=== PATIENT | female | born 1955 | race Caucasian/White ===

== ENCOUNTER 2016-11-13 08:50 | Inpatient (IN) | payer OTHER ==
[2016-11-13] MEDS ORDERED: SUCCINYLCHOLINE CHLORIDE INJ 200 MG/10 ML VIAL ONE (09:49)
[2016-11-13] MEDS ORDERED: LIDOCAINE 2% INJ-PF (20 MG/ML) 10 ML AMPUL ONE (09:49)
[2016-11-13] MEDS ORDERED: NEOSTIGMINE METHYLSULFATE 10 MG/10 ML VIAL ONE (09:49)
[2016-11-13] MEDS ORDERED: METOCLOPRAMIDE HCL INJ/PF 10 MG/2 ML SDV ONE (09:49)
[2016-11-13] MEDS ORDERED: GLYCOPYRROLATE INJ 0.4 MG/2 ML VIAL ONE (09:49)
[2016-11-13] MEDS ORDERED: ONDANSETRON HCL INJ/PF 4 MG/2 ML SDV ONE (09:49)
[2016-11-13] MEDS ORDERED: ROCURONIUM BROMIDE INJ 50 MG/5 ML VIAL IV ONE (09:49)
[2016-11-13] MEDS ORDERED: DEXAMETHASONE SOD PHOSPHATE INJ 4 MG/1 ML VIAL ONE (09:49)
--- NOTE | 2016-11-13 10:05 | ER Document Report ---
ED GI/ <LUCA AMES - Last Filed: 11/13/16 15:23> - General Time seen by provider: 10:25 Mode of Arrival: Ambulatory Information source: Patient TRAVEL OUTSIDE OF THE [place] IN LAST 30 DAYS: No - HPI Patient complains to provider of: Abdominal pain. No: Diarrhea, Vomiting Onset: Other - see HPI note Associated symptoms: Loss of appetite, Nausea. denies: Diarrhea, Fever, Vomiting <JANE VANN - Last Filed: 11/13/16 15:42> - General Chief Complaint: Abdominal Pain Stated Complaint: ABDOMINAL PAIN Notes: Patient is a 60 year old female presenting to the emergency department for abdominal pain. Patient states she has had this pain 3 or 4 times in the past but it goes away. Patient has never been treated while having this pain; she was told to be evaluated if the pain returns. Patient states that her pain started yesterday and was worsened after eating pizza for dinner. Patient states that her pain was gradual but quick. Patient does not have an appetite this morning. Patient states that she has some pressure under her ribs and in her right upper quadrant. Patient states that her pain radiates into her shoulder and back. Patient states that her last bowel movement was normal and this morning. Patient also is nauseous but denies any vomiting or diarrhea. Patient states she has a history of an umbilical hernia, Cesarian section, kidney stones, a colonoscopy with a polyup removed. Patient has no known allergies. Patient is originally from [place]. (JANE VANN) - Related Data Allergies/Adverse Reactions: No Known Allergies Allergy (Unverified 11/13/16 08:58) Home Medications: Current Home Medications No Home Medications 11/13/16 [History] Past Medical History - General Information source: Patient - Social History Smoking Status: Never Smoker Cigarette use (# per day): No Chew tobacco use (# tins/day): No Frequency of alcohol use: None Drug Abuse: None Family History: Other - mother-bladder cancer; dad-lung cancer Patient has suicidal ideation: No Patient has homicidal ideation: No <JANE VANN - Last Filed: 11/13/16 15:42> Review of Systems - Review of Systems Constitutional: No symptoms reported EENT: No symptoms reported Cardiovascular: No symptoms reported Respiratory: No symptoms reported Gastrointestinal: See HPI, Abdominal pain, Nausea, Poor appetite. denies: Diarrhea, Vomiting Genitourinary: No symptoms reported Female Genitourinary: No symptoms reported Musculoskeletal: No symptoms reported Skin: No symptoms reported Hematologic/Lymphatic: No symptoms reported Neurological/Psychological: No symptoms reported -: Yes All other systems reviewed and negative <JANE VANN - Last Filed: 11/13/16 15:42> Physical Exam - Vital signs Interpretation: Normal - General General appearance: Appears well, Alert - HEENT Head: Normocephalic, Atraumatic Eyes: Normal Pupils: PERRL Mucous membranes: Moist - Respiratory Respiratory status: No respiratory distress Chest status: Nontender Breath sounds: Normal Chest palpation: Normal - Cardiovascular Rhythm: Regular Heart sounds: Normal auscultation Murmur: No - Abdominal Inspection: Normal Distension: No distension Bowel sounds: Normal Tenderness: Tender - right upper quadrant pain with palpation, mild epigastric pain, inspiratory pause with palpation to the right upper quadrant; no guarding , no rebound, no rigidity Organomegaly: No organomegaly - Back Back: Normal, Nontender - Extremities General upper extremity: Normal inspection, Normal ROM, Normal strength General lower extremity: Normal inspection, Normal ROM, Normal strength - Neurological Neuro grossly intact: Yes Cognition: Normal Orientation: AAOx4 Radha Coma Scale Eye Opening: Spontaneous [place] Coma Scale Verbal: Oriented [place] Coma Scale Motor: Obeys Commands [place] Coma Scale Total: 15 Speech: Normal - Psychological Associated symptoms: Normal affect, Normal mood - Skin Skin Temperature: Warm Skin Moisture: Dry <JANE VANN - Last Filed: 11/13/16 15:42> - Vital signs Vitals: Temp Pulse Resp BP Pulse Ox 98.5 F 63 16 160/93 H 99 11/13/16 08:57 11/13/16 08:57 11/13/16 08:57 11/13/16 08:57 11/13/16 08:57 Course - Laboratory Result Diagrams: 11/13/16 12:25 11/13/16 12:25 <LUCA AMES - Last Filed: 11/13/16 15:23> - Laboratory Result Diagrams: 11/13/16 12:25 11/13/16 12:25 - Consults Dr. Jean Time consulted: 13:30 <AYSHALEOJANE - Last Filed: 11/13/16 15:42> - Re-evaluation Re-evalutation: 11/13/16 13:23 I personally performed the services described in the documentation, reviewed and edited the documentation which was dictated to my scribe in my presence, and it accurately records my words and actions. dr jean here to evaluate and admit Dr presents to the emergency department with epigastric right upper quadrant dull pain that started last evening and has been constant. She said this is happened to her 4 or 5 times over the last year but by morning time is completely resolved when she goes to Dr. they tell her they want to see it when it active. Patient had any workup or evaluation for this. She recalls eating pizza last night kept her awake only long and the pain has continued. Nausea but no vomiting no fever or chills or diarrhea. She has no major medical problems and is on no medications and is visiting from [place]. On my examination she had right upper quadrant abdominal pain with inspiratory pause. Gallbladder ultrasound showing adenomyomatosis and pericholecystic fluid with elevated white blood cell count of 16,000. Patient is given Invanz pain control serial abdominal examinations no guarding rebound or rigidity. I have paged Dr. jean who is compressor station engineer chief for surgery and awaiting a callback. 11/13/16 15:22 Dr jean here to evaluate and admit patient (LUCA AMES) - Vital Signs Vital signs: Temp Pulse Resp BP Pulse Ox 98.8 F 65 16 139/78 H 98 11/13/16 14:56 11/13/16 14:56 11/13/16 14:56 11/13/16 14:56 11/13/16 14:56 - Laboratory Laboratory results interpreted by me: 11/13/16 11/13/16 11/13/16 10:05 12:25 12:25 WBC 16.0 H Seg Neutrophils % 80.7 H Lymphocytes % 12.8 L Absolute Neutrophils 12.9 H Sodium 146.5 H Urine Ketones 20 H Urine Blood MODERATE H - Consults Dr. Jean Reason for consultation: 11/13/16 13:[address] Jean about patient for possible cholecystectomy. He will see the patient. (JANE VANN) Critical Care Note - Critical Care Note Total time excluding time spent on procedures (mins): 45 <LUCA AMES - Last Filed: 11/13/16 15:23> Discharge - Discharge Admitting Provider: Surgicalist Unit Admitted: Medical Floor <LUCA AMES - Last Filed: 11/13/16 15:23> Scribe Documentation - Scribe Written by Scribe:: Jane Vann 11/13/16 14:28 acting as scribe for :: Jered <JANE VANN - Last Filed: 11/13/16 15:42>
[2016-11-13 10:22] LABS: APPEARANCE,URINE CLEAR; BILIRUBIN,URINE NEGATIVE (NEGATIVE); GLUCOSE, URINE NEGATIVE (NEGATIVE); KETONES,URINE 20 mg/dL (NEGATIVE); LEUKOCYTE ESTERASE,URINE NEGATIVE (NEGATIVE); NITRITE,URINE NEGATIVE (NEGATIVE); PROTEIN,URINE NEGATIVE (NEGATIVE); URINE SPECIFIC GRAVITY 1.018; UROBILINOGEN,URINE NEGATIVE mg/dL (<2.0)
[2016-11-13] MEDS ORDERED: FENTANYL CITRATE INJ/PF 100 MCG/2 ML AMPUL IV ONE (11:05)
[2016-11-13] MEDS ORDERED: ONDANSETRON HCL INJ/PF 4 MG/2 ML SDV IV ONE (11:06)
[2016-11-13 12:41] LABS: ABSOLUTE BASOPHILS # (AUTO) 0.1 10^3/uL (0.0-0.2); ABSOLUTE NEUT (AUTO) 12.9 10^3/uL (1.7-8.2); BASOPHILS % (AUTO) 0.3 % (0-2); EOSINOPHILS % (AUTO) 0.1 % (0-6); HEMATOCRIT 43.6 % (36.0-47.0); HEMOGLOBIN 14.4 g/dL (12.0-15.5); HGB HCT DIFFERENCE -0.4; LYMPHOCYTES % (AUTO) 12.8 % (13-45); MEAN CORPUSCULAR HEMOGLOBIN 28.9 pg (27.0-33.4); MEAN CORPUSCULAR HGB CONC 32.9 g/dL (32.0-36.0); MEAN CORPUSCULAR VOLUME 88 fl (80-97); MONOCYTES % (AUTO) 6.1 % (3-13); RED BLOOD COUNT 4.96 10^6/uL (3.72-5.28); RED CELL DISTRIBUTION WIDTH 13.2 % (11.5-14.0); SEGMENTED NEUTROPHILS % (AUTO) 80.7 % (42-78)
[2016-11-13 13:02] LABS: ALANINE AMINOTRANSFERASE 23 U/L (9-52); ALBUMIN 4.3 g/dL (3.5-5.0); ALKALINE PHOSPHATASE 84 U/L (38-126); ANION GAP 16 (5-19); ASPARTATE AMINO TRANSFERASE 19 U/L (14-36); BILIRUBIN,DIRECT 0.3 mg/dL (0.0-0.4); BILIRUBIN,TOTAL 0.7 mg/dL (0.2-1.3); BLOOD UREA NITROGEN 8 mg/dL (7-20); CALCIUM 9.7 mg/dL (8.4-10.2); CARBON DIOXIDE 27 mmol/L (22-30); CHLORIDE 104 mmol/L (98-107); CREATININE RESULT 0.59 mg/dL (0.52-1.25); GLUCOSE 96 mg/dL (75-110); LIPASE 64.1 U/L (23-300); POTASSIUM 4.4 mmol/L (3.6-5.0); SODIUM 146.5 mmol/L (137-145); TOTAL PROTEIN 7.4 g/dL (6.3-8.2)
[2016-11-13] MEDS ORDERED: ERTAPENEM SODIUM INJ 1 GM VIAL IV ONE (13:25)
[2016-11-13] MEDS ORDERED: LIDOCAINE 1% INJ-PF (10 MG/ML) 30 ML SDV ONE (15:40)
[2016-11-13] MEDS ORDERED: BUPIVACAINE HCL 0.25% /EPINEPHRINE INJ/PF 30 ML SDV ONE (15:41)
[2016-11-13] MEDS ORDERED: MIDAZOLAM 2 MG/2 ML INJ ONE (16:15)
[2016-11-13] MEDS ORDERED: FENTANYL CITRATE INJ/PF 250 MCG/5 ML AMPULE ONE (16:15)
[2016-11-13] MEDS ORDERED: ACETAMINOPHEN 100 ML IV ONE (16:16)
[2016-11-13] MEDS ORDERED: DEXMEDETOMIDINE INJ 80 MCG/20 ML VIAL IV ONE (16:16)
[2016-11-13] MEDS ORDERED: PROPOFOL INJ 200 MG/20 ML VIAL IV ONE (16:16)
[2016-11-13] MEDS ORDERED: EPHEDRINE SULFATE INJ 50 MG/1 ML AMPULE ONE (16:16)
[2016-11-13] MEDS ORDERED: PROMETHAZINE HCL INJ 25 MG/1 ML VIAL IV PRN ×2 (17:35)
[2016-11-13] MEDS ORDERED: MORPHINE SULFATE 10 MG/ML INJ IV PRN (17:35)
[2016-11-13] MEDS ORDERED: MEPERIDINE HCL/PF INJ 25 MG/1 ML DISP.SYRIN IV PRN (17:35)
[2016-11-13] MEDS ORDERED: DIPHENHYDRAMINE HCL 50 MG/ML VIAL IV PRN (17:35)
[2016-11-13] MEDS ORDERED: FENTANYL CITRATE INJ/PF 100 MCG/2 ML AMPUL IV PRN ×3 (17:35)
[2016-11-13] MEDS ORDERED: ONDANSETRON HCL INJ/PF 4 MG/2 ML SDV IV PRN ×2 (17:35→19:37)
--- NOTE | 2016-11-13 17:38 | HISTORY AND PHYSICAL E ---
History and Physical NAME: TOMAS ODELL : 1955 AGE: 60Y ADMITTED: 11/13/2016 ROOM: ED42 CHIEF COMPLAINT: Right upper quadrant. HISTORY OF PRESENT ILLNESS: This is a healthy 60-year-old female who comes to the hospital with a 24-hour history of right upper quadrant pain, intense nausea, chills. The pain is localized in the right upper quadrant. Ultrasound of the gallbladder was done, revealing gallstones with thickening of the gallbladder wall and fluid around the gallbladder. The patient reports to have discomfort in the past but it has become more intense during the past 24 hours. PAST MEDICAL HISTORY: Umbilical hernia repair. ALLERGIES: None. MEDICATIONS: None. SOCIAL HISTORY: The patient admits to occasional use of alcohol. Denies abuse of tobacco and drugs. FAMILY HISTORY: Family history has been investigated and is negative. REVIEW OF SYSTEMS: A 12-point review of systems was then performed and s negative. LABORATORY DATA: White blood cell count 16, H and H 14 and 43, platelet count 337. Electrolytes within normal limits except for sodium of 146. Liver profile is normal. Urinalysis within normal limits except for a small amount of blood. Ultrasound of the gallbladder shows a thickened gallbladder wall, minimal pericholecystic fluid and floating stones together with deposits of cholesterol. PHYSICAL EXAMINATION: GENERAL: The patient is alert and oriented x3 in no acute distress. VITAL SIGNS: Stable. Patient afebrile. HEENT: VII-XII cranial nerves are normal. NECK: Supple without masses. CHEST: Symmetrical bilaterally. LUNGS: Clear to auscultation bilaterally. HEART: Regular rhythm and rate. ABDOMEN: Flat, soft, nondistended. Tender in the right upper quadrant. EXTREMITIES: Upper extremities equal and symmetric bilaterally without deficits. NEUROLOGIC SYSTEM: Equal and symmetric bilaterally without deficits. SKIN: Warm, dry, intact without lesions. ASSESSMENT AND PLAN: 1. Right upper quadrant pain on physical examination. 2. Ultrasound significant for thickening of gallbladder wall with pericholecystic fluid and gallstones. 3. Liver profile within normal limits. 4. Leukocytosis. PLAN: 1. Laparoscopic cholecystectomy, possible open, possible cholangiogram. 2. Procedure, risks, benefits, complications explained to the patient including the possibility of bleeding from the liver and/or injury to the common bile duct which may require transfer to a tertiary center for open repair. She understands all the above. Her questions were answered. She decided to proceed. 3. We will give the patient IV antibiotics Zosyn 3.375 g IV piggyback in the preoperative holding area. DICTATING PHYSICIAN: ANNAMARIE HAMILTON M.D. [id number] PHY#: [id number] ID: [id number] JOB#: [id number] ACCT: [id number] cc:Frankie CANALES MD
[2016-11-13] MEDS ORDERED: DEXTROSE 5%-LACTATED RINGERS 1,000 ML IV PRN (19:37)
[2016-11-13] MEDS: MORPHINE SULFATE 10 MG/ML INJ IV PRN (20:20)
--- NOTE | 2016-11-13 20:43 | OPERATIVE REPORT E ---
Operative Report NAME: TOMAS ODELL : 1955 AGE: 60Y DATE OF SURGERY: 11/13/2016 ROOM: 206 PREOPERATIVE DIAGNOSIS: 1. Cholelithiasis symptomatic. 2. Acute cholecystitis. POSTOPERATIVE DIAGNOSIS: 1. Cholelithiasis symptomatic. 2. Acute cholecystitis. OPERATION: 1. Laparoscopic cholecystectomy. 2. Laparoscopic needle cholecystotomy. SURGEON: ANNAMARIE HAMILTON M.D. CHRONIC MANAGER: None. BLOOD LOSS: 50 mL. COMPLICATIONS: None. ANESTHESIA: General plus 20 mL of 0.50% Marcaine with epinephrine. FLUIDS: 1200. URINE OUTPUT: Not monitored. DRAINS: One 10-Tristanian flat Derik-Ochoa drain. INDICATION AND FINDINGS: This is a healthy 60-year-old female who presented to the Emergency Room with a 24-hour history of right upper quadrant pain, found to have thickened gallbladder wall with pericholecystic fluid and cholelithiasis. In addition, she presented with an elevated white blood cell count of 16,000. The decision was made to take her to surgery and to perform laparoscopic cholecystectomy, possible open, possible cholangiogram. The procedure, risks, benefits, and complications were explained to the patient. She understood all the above including the possibility of injury to the common bile duct or bleeding from the liver which might require open repair at a tertiary center. She understood all the above, and she decided to proceed. DESCRIPTION OF PROCEDURE: Once in the operating room, the patient was placed in supine position. General anesthesia induced by endotracheal tube intubation. Abdomen prepped and draped in the usual fashion. An incision was made just above the umbilicus, and a 5 mm port with Optiview adaptor and 5 mm scope was inserted without difficulty through the abdominal wall into the peritoneal cavity. CO2 pneumoperitoneum was then established. Under direct visualization, a 10 mm port and two 5 mm ports were placed in the epigastrium and right upper quadrant, respectively. The patient was then placed in reverse Trendelenburg position with the right side elevated. The gallbladder was found to be very thick and filled with fluid. It was initially emptied with a laparoscopic needle. About 60 mL of clear fluid were evacuated; this fluid was sent for aerobic and anaerobic cultures and Gram stain. The gallbladder was then grasped at the level of the fundus, elevated, retroflexed with exposure of the gallbladder body and the infundibulum. The infundibulum was then grasped and pulled anterior toward the patient's right with the exposure of the cholecystic duct. The critical view of safety was obtained by dividing the peritoneal attachments of the gallbladder medially and laterally. The dissection was then continued distally towards the cystic duct area. This was dissected with the hook cautery at low settings and continued until it was clearly identified. Once the critical view of safety was obtained and the cystic duct was the only structure keeping the infundibulum attached to the liver, this was further dissected with the right-angled dissector and with the peanut dissector, doubly clipped proximally and distally and divided with scissors. Following division of the cystic duct, a small amount of bleeding was noted just posterior to it most likely due to an accessory cystic artery which was not identified beforehand. This was clearly identified , and two clips were applied on the distal stump of the cystic artery with control of the bleeding. The gallbladder was then dissected off the liver bed using hook cautery at higher settings, and this was extracted from the peritoneal cavity in an Endo bag. The CO2 pneumoperitoneum was re-established. Liver bed was inspected, and no active bleeding was noted; however, because of the rough surface of the liver, decision was made to cauterize it first, and decision was made to spray 5 mg of FloSeal foam on the liver bed. This was done without difficulty followed by aspiration of the most of the irrigation fluid. The fascial defect of the epigastrium was closed with [id number]-bnlsm 0 Vicryl suture using a fascial closure device under direct visualization. A 10-Tristanian flat Derik-Ochoa drain was inserted through the epigastric port into the peritoneal cavity. It was grasped by a grasper inserted in the right upper quadrant port, and it was pulled through the same site outside of the peritoneal cavity. It was then placed under the liver bed in the gallbladder fossa underdirect visualization. At this point, all instruments were removed. The CO2 pneumoperitoneum was released. The ports were removed. The drain was secured to the skin with 2-0 nylon suture, and the fascial defect of the epigastrium was closed with the previously placed 0 Vicryl [id number]-sq-[id number] suture. All skin incisions were closed with 4-0 Monocryl running suture. The patient tolerated the procedure well, extubated, and transferred to the recovery room in satisfactory condition. DICTATING PHYSICIAN: ANNAMARIE HAMILTON M.D. [id number] PHY#: [id number] ID: [id number] JOB#: [id number] ACCT: [id number] cc:ANNAMARIE HAMILTON M.D. > [facility]
[2016-11-13] MEDS ORDERED: PIPERACILLIN/TAZOBACTAM 3.375 GM VIAL IV PRN (20:57)
[2016-11-13] MEDS ORDERED: PIPERACILLIN/TAZOBACTAM 3.375 GM VIAL IV ONE (23:23)
[2016-11-13] MEDS: PIPERACILLIN SODIUM/TAZOBACTAM 3.375 GM in NORMAL SALINE 100 ML IV SCH (23:43)
[2016-11-14] MEDS: PIPERACILLIN SODIUM/TAZOBACTAM 3.375 GM in NORMAL SALINE 100 ML IV SCH ×4 (03:55→21:08)
[2016-11-14] MEDS: MORPHINE SULFATE 10 MG/ML INJ IV PRN (04:27)
[2016-11-14] MEDS: ENOXAPARIN SODIUM INJ 40 MG/0.4 ML DISP.SYRIN SUBCUT SCH (05:42)
[2016-11-14 11:34] LABS: ABSOLUTE LYMPHOCYTES (AUTO) 1.2 10^3/uL (0.5-4.7); ABSOLUTE MONOCYTES (AUTO) 0.9 10^3/uL (0.1-1.4); ABSOLUTE NEUT (AUTO) 12.3 10^3/uL (1.7-8.2); BASOPHILS % (AUTO) 0.1 % (0-2); HEMATOCRIT 37.1 % (36.0-47.0); HEMOGLOBIN 12.6 g/dL (12.0-15.5); HGB HCT DIFFERENCE 0.7; LYMPHOCYTES % (AUTO) 8.5 % (13-45); MEAN CORPUSCULAR HEMOGLOBIN 29.8 pg (27.0-33.4); MEAN CORPUSCULAR VOLUME 88 fl (80-97); MONOCYTES % (AUTO) 6.5 % (3-13); RED BLOOD COUNT 4.23 10^6/uL (3.72-5.28); RED CELL DISTRIBUTION WIDTH 13.3 % (11.5-14.0); SEGMENTED NEUTROPHILS % (AUTO) 84.9 % (42-78); WHITE BLOOD COUNT 14.5 10^3/uL (4.0-10.5)
[2016-11-14 11:54] LABS: ALANINE AMINOTRANSFERASE 142 U/L (9-52); ALBUMIN 3.5 g/dL (3.5-5.0); ALKALINE PHOSPHATASE 67 U/L (38-126); ANION GAP 10 (5-19); ASPARTATE AMINO TRANSFERASE 117 U/L (14-36); BILIRUBIN,DIRECT 0.1 mg/dL (0.0-0.4); BILIRUBIN,TOTAL 0.8 mg/dL (0.2-1.3); BLOOD UREA NITROGEN 9 mg/dL (7-20); CALCIUM 9.3 mg/dL (8.4-10.2); CARBON DIOXIDE 27 mmol/L (22-30); CHLORIDE 104 mmol/L (98-107); CREATININE RESULT 0.73 mg/dL (0.52-1.25); GLUCOSE 115 mg/dL (75-110); SODIUM 141.2 mmol/L (137-145); TOTAL PROTEIN 6.2 g/dL (6.3-8.2)
--- NOTE | 2016-11-14 18:53 | PROGRESS NOTE E ---
Progress Note NAME: TOMAS ODELL : 1955 AGE: 60Y DATE: 11/14/2016 ROOM: 206 SUBJECTIVE: The patient reports occasional right-sided abdominal pain. No nausea or vomiting. P.o. was tolerated. OBJECTIVE: VITAL SIGNS: Stable. Patient afebrile with temperature 99.0. Pulse 62. Blood pressure 118/62. Respirations 16. FLUID BALANCE: I's and O's for the past 24 hours: 400 intake and 320 output of which 30 mL from her Derik-Ochoa drain. LUNGS: Clear. HEART: Regular. ABDOMEN: Soft but slightly distended with wounds clean, dry, and intact. Presence of a drain in the right upper quadrant with serosanguineous fluid. REVIEW OF LABORATORIES: White blood cell count 14.5, H and H 12 and 37, platelet count 279. Electrolytes: BUN and creatinine within normal limits. Liver profile shows a normal bilirubin, alkaline phosphatase, AST, ALT. ASSESSMENT: 1. STATUS POST LAPAROSCOPIC CHOLECYSTECTOMY FOR ACUTE CHOLECYSTITIS WITH CHOLELITHIASIS. 2. PATIENT STABLE AND AFEBRILE. 3. BLOOD WORK WITHIN NORMAL LIMITS. 4. WHITE BLOOD CELL COUNT DECREASED SINCE YESTERDAY. 5. PATIENT TOLERATED P.O. WELL. PLAN: 1. Continue IV antibiotics. 2. Discontinue IV fluids. 3. Patient possibly discharged to home tomorrow with the Derik-Ochoa drain in place. DICTATING PHYSICIAN: ANNAMARIE HAMILTON M.D. [id number] PHY#: [id number] ID: [id number] JOB#: [id number] ACCT: [id number] cc: >
[2016-11-14] MEDS: HYDROCODONE/ACETAMINOPHEN 5-325 MG TABLET PO PRN (18:57)
[2016-11-15] MEDS: PIPERACILLIN SODIUM/TAZOBACTAM 3.375 GM in NORMAL SALINE 100 ML IV SCH ×2 (02:27→10:04)
[2016-11-15] MEDS: ENOXAPARIN SODIUM INJ 40 MG/0.4 ML DISP.SYRIN SUBCUT SCH (06:42)
[2016-11-15 07:06] LABS: HEMATOCRIT 35.4 % (36.0-47.0); HGB HCT DIFFERENCE 0.6; MEAN CORPUSCULAR HEMOGLOBIN 29.8 pg (27.0-33.4); MEAN CORPUSCULAR HGB CONC 33.9 g/dL (32.0-36.0); MEAN CORPUSCULAR VOLUME 88 fl (80-97); RED BLOOD COUNT 4.04 10^6/uL (3.72-5.28); RED CELL DISTRIBUTION WIDTH 13.3 % (11.5-14.0); WHITE BLOOD COUNT 9.6 10^3/uL (4.0-10.5)
[2016-11-15 07:28] LABS: ALANINE AMINOTRANSFERASE 108 U/L (9-52); ALBUMIN 3.1 g/dL (3.5-5.0); ALKALINE PHOSPHATASE 63 U/L (38-126); ANION GAP 7 (5-19); ASPARTATE AMINO TRANSFERASE 58 U/L (14-36); BILIRUBIN,DIRECT 0.1 mg/dL (0.0-0.4); BILIRUBIN,TOTAL 0.4 mg/dL (0.2-1.3); BLOOD UREA NITROGEN 10 mg/dL (7-20); CALCIUM 8.7 mg/dL (8.4-10.2); CARBON DIOXIDE 29 mmol/L (22-30); CHLORIDE 106 mmol/L (98-107); CREATININE RESULT 0.77 mg/dL (0.52-1.25); GLUCOSE 92 mg/dL (75-110); POTASSIUM 3.9 mmol/L (3.6-5.0); SODIUM 142.2 mmol/L (137-145); TOTAL PROTEIN 5.5 g/dL (6.3-8.2)
[2016-11-15] MEDS: HYDROCODONE/ACETAMINOPHEN 5-325 MG TABLET PO PRN (10:28)
--- NOTE | 2016-11-15 12:39 | DISCHARGE SUMMARY E ---
Discharge Summary NAME: TOMAS ODELL : 1955 AGE: 60Y ADMITTED: 11/13/2016 DISCHARGED: 11/15/2016 FINAL DIAGNOSIS: Acute cholecystitis with cholelithiasis. PROCEDURE: Laparoscopic cholecystectomy on November 13. COMPLICATIONS: None. HOSPITAL COURSE: This is a healthy 60-year-old female who presented to the hospital with complaint of right upper quadrant pain and found to have acute cholecystitis with cholelithiasis on November 13 on ultrasound. She was taken to surgery where she underwent laparoscopic cholecystectomy uneventfully. A drain was left. Her postoperative course was unremarkable. Her diet was advanced. On the day of discharge, the patient had no complaints. She tolerated p.o. well and having flatus. Vital signs were stable. She was afebrile. She had a Derik-Ochoa drain which was draining about 50 mL of serosanguineous fluid without bile identified. Her blood work was within normal with a normal CBC, normal electrolytes, BUN and creatinine, and liver profile was normal except for a slightly elevated AST and ALT. Patient was discharged home on November 15. Followup appointment with our clinic in 1 week. She was also given a followup appointment with a local surgeon in [place] within a week for drain management. She was given Levaquin 500 mg p.o. daily for 10 days and Flagyl 500 mg p.o. t.i.d. for 10 days. She was given Tylenol 325 mg p.o. q.6 p.r.n. for pain and Aleve 220 mg p.o. b.i.d. p.r.n. for pain as well. She was instructed not to drink any alcohol. Activities as tolerated. No shower while the drain is in place and then she can shower and bathe 2 weeks afterward. No wound care needed. Diet as tolerated and activities as tolerated as well. DICTATING PHYSICIAN: ANNAMARIE HAMILTON M.D. [id number] PHY#: [id number] ID: [id number] JOB#: [id number] ACCT: [id number] cc:LOCAL, ANNAMARIE HERNANDEZ MD, M.D, M.D. GROUP, E. [facility]. >
--- NOTE | 2016-11-15 12:43 | PROGRESS NOTE E ---
Progress Note NAME: TOMAS ODELL : 1955 AGE: 60Y DATE: 11/15/2016 ROOM: 206 SUBJECTIVE: The patient has no complaints. OBJECTIVE: VITAL SIGNS: Stable. Patient is afebrile. Vital signs within normal limits. LUNGS: Clear to auscultation bilaterally. HEART: Regular rhythm and rate. ABDOMEN: Soft, nondistended, nontender. All incisions clean, dry, intact. PAVAN drain right upper quadrant. BLOOD WORK: CBC, electrolytes, BUN and creatinine, and liver profile all within normal limits except for slightly elevated AST, ALT. Is and Os: Output from the Derik-Ochoa drain about 50-60 mL of serosanguineous fluid. No bile noted. ASSESSMENT: 1. POSTOP DAY NUMBER 2 FOLLOWING LAPAROSCOPIC CHOLECYSTECTOMY FOR ACUTE CALCULOUS CHOLECYSTITIS. 2. PATIENT STABLE AND AFEBRILE. 3. BLOOD WORK WITHIN NORMAL LIMITS, PHYSICAL EXAM UNREMARKABLE. PLAN: 1. Discharge her home today. 2. Follow up with local surgeon in [place]. 3. Patient to be discharged today. 4. Patient will be given oral antibiotics, Levaquin and Flagyl for 10 days. DICTATING PHYSICIAN: ANNAMARIE HAMILTON M.D. [id number] PHY#: [id number] ID: [id number] JOB#: [id number] ACCT: [id number] cc: > MTDD
[2016-11-15 13:03] VITALS: BP 95/58
== END 2016-11-15 14:53 | disposition home or self-care (01) | DRG 419 ==
LOC: ER 08:50 → 2N 15:40 → UNDOADMIN 16:07 → EH 16:07 → 2N 19:47
PROVIDERS: ADMIT Surgery; ATTEND Surgery
PROC: 0F9440Z Drainage of Gallbladder with Drainage Device, Percutaneous Endoscopic Approach (ICD-10-PCS; 2016-11-13)
PROC: 0FT44ZZ Resection of Gallbladder, Percutaneous Endoscopic Approach (ICD-10-PCS; principal; 2016-11-13 16:30)
DX: K80.00 Calculus of gallbladder with acute cholecystitis without obstruction (principal); Z80.52 Family history of malignant neoplasm of bladder; Z80.1 Family history of malignant neoplasm of trachea, bronchus and lung
CPT/HCPCS: 36415; 76705; 790; 80053; 81001; 83690; 85025; 85027; 87040; 87070; 87075; 87205; 88304; 96374; 96375; 99291; J0131; J0330; J1100; J1335; J1650; J2250; J2270; J2405; J2543; J2704; J2765; J3010; J3490